=== PATIENT | female | born 1990 | race Caucasian/White ===

== ENCOUNTER 2022-04-28 06:00 | Outpatient (RCR) | payer BC, SELFPAY | END 2022-05-13 23:59 | disposition home or self-care (01) | LOC: SPT 06:00 | PROVIDERS: PCP Registered Nurse; Visit Provider Registered Nurse | DX: S46.912A Strain of unspecified muscle, fascia and tendon at shoulder and upper arm level, left arm, initial encounter (principal); X58.XXXA Exposure to other specified factors, initial encounter | CPT/HCPCS: 97161 ==

== ENCOUNTER → 2023-02-12 10:00 | Outpatient (BNVA) | payer MEDICAID, SELFPAY | PROVIDERS: PCP Nurse Practitioner Family; Visit Provider Obstetrics & Gynecology | DX: Z39.2 Encounter for routine postpartum follow-up (principal) | CPT/HCPCS: 80053; 82570; 84156; 84550; 85025 ==

== ENCOUNTER 2023-02-16 11:31 | Outpatient (CLI) | payer MEDICAID, SELFPAY ==
[2023-02-16 12:27] LABS: Total Volume, Urine 2400 mL
[2023-02-16 12:49] LABS: Urine Total Protein 4.1 mg/dL (0-150); Urine Total Protein 24 Hour 98.4 mg/24hr (0-150)
== END 2023-02-16 11:32 | disposition home or self-care (01) ==
PROVIDERS: PCP Nurse Practitioner Family; Visit Provider Obstetrics & Gynecology
DX: Z01.89 Encounter for other specified special examinations (principal)
CPT/HCPCS: 36415; 84156

== ENCOUNTER → 2023-05-12 11:44 | Outpatient (BNVA) | payer MEDICAID, SELFPAY | PROVIDERS: PCP Nurse Practitioner Family; Visit Provider Obstetrics & Gynecology | DX: R10.2 Pelvic and perineal pain (principal) | CPT/HCPCS: 76830 ==

== ENCOUNTER → 2023-09-03 08:12 | Outpatient (BNVA) | payer MEDICAID, SELFPAY | PROVIDERS: PCP Nurse Practitioner Family; Visit Provider Obstetrics & Gynecology | DX: Z30.9 Encounter for contraceptive management, unspecified (principal) | CPT/HCPCS: 81025 ==

== ENCOUNTER → 2023-09-07 13:48 | Outpatient (BNVA) | payer MEDICAID, SELFPAY | PROVIDERS: PCP Nurse Practitioner Family; Visit Provider Obstetrics & Gynecology | DX: N83.291 Other ovarian cyst, right side (principal) | CPT/HCPCS: 76830 ==

== ENCOUNTER 2023-09-30 13:17 | Outpatient (CLI) | payer MEDICAID, SELFPAY ==
--- NOTE | 2023-09-30 13:25 | MM_ITS ---
WS: [id number] BILATERAL 3D TOMOSYNTHESIS DIGITAL DIAGNOSTIC MAMMOGRAPHY WITH CAD CLINICAL INFORMATION: PRAFUL BR PAIN HISTORY: Diagnostic mammogram. LEFT breast lump. Bilateral breast pain. COMPARISON: Baseline TECHNIQUE: Bilateral CC, ML, and MLO views. FINDINGS: The breasts are composed of heterogeneous fibroglandular density tissue, which can limit the detectio n of small underlying mass lesions. Palpable marker upper outer LEFT breast. Normal underlying parenc hymal tissue. Ultrasound of this area is pending. ULTRASOUND BREAST BILATERAL TECHNIQUE: Ultrasound bilateral breast focused area of concern. CLINICAL INFORMATION: PRAFUL BR PAIN FINDINGS: RIGHT BREAST: Ultrasound RIGHT breast area of concern 7 to 10 o'clock position. Normal underlying par enchymal tissue. No cystic or solid lesions. No suspicious findings in the area of concern. LEFT BREAST: Ultrasound LEFT breast area of palpable lump 2 o'clock position 5 cm from the nipple. Pa renchymal tissue. No cystic or solid lesions. No suspicious findings in the area of concern. IMPRESSION: MM/[place] [id number] BI-RADS: 2-Benign FOLLOW UP: Age 39 Recommend annual screening mammography age 39
== END 2023-09-30 13:18 | disposition home or self-care (01) ==
LOC: RAD 13:18
PROVIDERS: PCP Nurse Practitioner Family; Visit Provider Nurse Practitioner Family
DX: N64.4 Mastodynia (principal); N63.21 Unspecified lump in the left breast, upper outer quadrant; R92.322 Mammographic fibroglandular density, left breast
CPT/HCPCS: 76641; 77062; G0279

== ENCOUNTER 2024-04-25 10:43 | Observation (INO) | payer OTHER, MEDICAID, SELFPAY ==
--- NOTE | 2024-04-24 12:10 | ANES.PREANE2 ---
Pre-Anesthetic Assessment Height/Weight: Height 5 ft 5 in Preop Diagnosis: Chronic pelvic pain, dyspareunia, dysmenorrhea, endometriosis Operation Date: 04/25/24 08:35 Proposed Procedures p Laparoscopic Assist Vaginal Hysterectomy 40040, R10.2, G89.29(Not Applicable) - Lázaro Mercer MD Social Tobacco and No alcohol Exam alert, oriented x 3 and clear to auscultation bilaterally Patient appears to drop a beat on auscultation, will plan on getting EKG prior to surgery Airway Submandibular: within normal limits Cervical ROM: within normal limits Anesthetic Plan ASA status: 3 Anesthesia: General Other: No prior issues with anesthesia, patient is a difficult stick NPO since yesterday History of GERD on Protonix Will obtain labs prior to surgery EKG ordered Plan for GETA Medications/Allergies Home Medications Medication Instructions Recorded Confirmed Last Taken Type hyoscyamine sulfate 0.125 mg tablet 0.125 mg PO QID 09/03/23 04/24/24 04/23/24 History pantoprazole 20 mg tablet,delayed 20 mg PO DAILY 09/03/23 04/24/24 04/23/24 History release (Protonix) tizanidine 4 mg capsule 4 mg PO BID PRN Abdominal 12/24/23 04/24/24 Unknown History Discomfort ibuprofen 100 mg chewable tablet 200 mg PO Q6H PRN Pain 04/24/24 04/24/24 04/23/24 History Allergies Allergy/AdvReac Type Severity Reaction Status Date / Time cefaclor Allergy Unknown ALGY-Hives Verified 04/24/24 09:12 amoxicillin Allergy Unknown Verified 04/24/24 09:12 omeprazole Allergy ADR-Nausea Verified 04/24/24 11:05 PFSH Anesthesia Family History Father CAD (coronary artery disease) Hyperlipidemia Hypertension Heart disease Grandfather Cancer Grandmother Diabetes Father Diabetes Stroke Hypertension Heart disease Denies family history of Colon cancer Ovarian cancer Prostate cancer Dementia Chronic kidney disease (CKD) Breast cancer Uterine cancer Thyroid disease Social History Smoking and tobacco/nicotine status: current every day tobacco/nicotine user Alcohol intake: never Substance/Drug Use: never Adopted: No Caregiver/support person: No Lives independently: No Household members: significant other service: No Current occupational status: employed Sexually active: Yes Do you think of yourself as: Straight/Heterosexual Current gender identity: Female Data Anesthesia Cardiac Studies: No Data to Display
[2024-04-25] VITALS (20 sets, daily range): BP systolic 103–142; BP diastolic 2–84; PULSE 60–97; RESP 12–19; TEMP 36.3–36.9; O2SAT 93–100; BMI 40.7
[2024-04-25 07:38] LABS: Bilirubin Urine Negative (Negative); Blood Urine Negative (Negative); Glucose Urine UA Negative (Normal); Ketones Urine Negative (Negative); Leukocyte Esterase Urine Negative (Negative); Nitrate Urine Negative (Negative); Protein Urine Negative (Negative); Specific Gravity, Urine 1.015 (1.005-1.030); Urine Appearance Clear (CLEAR); Urine Color Yellow (Yellow); Urobilinogen Urine 0.2 mg/dL (Negative); pH Urine 7.5 (5-7)
[2024-04-25 07:43] LABS: Add Urine Microscopic? YES; Bacteria Urine 4+ /hpf; RBC Urine 0-2 /hpf (0-2); Squamous Epithelial Cell Urine 0-5 /hpf (0-5); WBC Urine 0-5 /hpf (0-5)
--- NOTE | 2024-04-25 07:44 | ECG_ITS ---
[facility] Test Date: 2024-04-25 Pat Name: Cynthia Garibay Department: Room: Gender: Female Buyer Planner: : 1990 Requested By: Ross Gutierrez Order Number: [id number] Reading MD: Measurements Intervals [place] Rate: 78 P: 32 UT: 110 QRS: 56 QRSD: 114 T: 26 QT: 363 QTc: 414 Interpretive Statements SINUS RHYTHM WITH SINUS ARRHYTHMIA WITH SHORT UT INTERVAL LOW QRS VOLTAGE IN PRECORDIAL LEADS [QRS DEFLECTION < 1.0 mV IN CHEST LEADS] MODERATE INTRAVENTRICULAR CONDUCTION DELAY [110+ ms QRS DURATION] [id number]
[2024-04-25] MEDS: scopolamine 1.5 Patch 1 PATCH TRANSDERMA (07:48)
[2024-04-25] MEDS: sodium chloride 0.9% 500 ML IV (07:48)
[2024-04-25] MEDS: metroNIDAZOLE IV 500 MG/100 ML PREMIX 100 MG IV (07:49)
[2024-04-25] MEDS: sodium chloride 0.9% 1,000 ML 30 ML IV (07:49)
[2024-04-25 07:55] LABS: Basophils # 0.1 10^3/uL (0.0-0.1); Basophils % 0.6 %; Eosinophils # 0.3 10^3/uL (0.0-0.8); Eosinophils % 3.2 %; Hematocrit 37.9 % (36-47); Lymphocytes # 1.9 10^3/uL (0.8-4.8); Lymphocytes % 20.1 %; Mean Corpuscular HGB Conc 31.9 g/dL (30-55); Mean Corpuscular Hemoglobin 25.2 pg (27-33); Mean Corpuscular Volume 78.8 fl (85-98); Mean Platelet Volume 9.8 fL (7.4-10.4); Monocytes # 0.5 10^3/uL (0.2-0.9); Monocytes % 5.5 %; Neutrophils # 6.71 10^3/uL (1.8-7.7); Neutrophils % 70.3 %; Nucleated Red Blood Cells % 0 %; Platelet Count 336 10^3/cmm (157-399); Red Blood Count 4.81 10^6/uL (3.85-5.65); Red Cell Distribution Width 14.6 % (12.1-15.1); White Blood Count 9.56 10^3/uL (3.29-11.43)
[2024-04-25 07:59] LABS: OR HCG Qualitative Urine Negative (Negative)
--- NOTE | 2024-04-25 08:00 | W.PM.OPSUD ---
Surgery/Procedure H&P Update DATE OF PROCEDURE: April 25, 2024 DATE H&P PERFORMED: 04/24/24 H&P UPDATE INFORMATION: I have reviewed H&P completed within last 30 days, I have examined patient prior to procedure and No changes to prior documentation PREOP DIAGNOSIS: Chronic pelvic pain, dyspareunia, dysmenorrhea, endometriosis PLANNED PROCEDURE: Operation Date: 04/25/24 08:35 Proposed Procedures p Laparoscopic Assist Vaginal Hysterectomy 69739, R10.2, G89.29(Not Applicable) - Lázaro Mercer MD
--- NOTE | 2024-04-25 08:00 | ANES.PAUD2 ---
Pre-Anesthetic Update Pre-Anesthetic Assessment: Date of Surgery/Procedure: 04/25/24 Preop Diagnosis: Chronic pelvic pain, dyspareunia, dysmenorrhea, endometriosis Proposed Procedure: Operation Date: 04/25/24 08:35 Proposed Procedures p Laparoscopic Assist Vaginal Hysterectomy 90534, R10.2, G89.29(Not Applicable) - Lázaro Mercer MD Changes from Pre-Anesthetic Assessment: No changes since yesterday. EKG performed this a.m. showing sinus rhythm with a short OR interval leading to a conduction delay. Labs reviewed and acceptable for procedure Plan for GETA Last Intake: Intake Last Liquid Date 04/24/24 Last Liquid Time 21:30 Last Solid Date 04/24/24 Last Solid Time 21:00 Labs Last 48hrs: Short CBC 04/25/24 Range/Units 07:42 WBC 9.56 (3.29-11.43) 10^ 3/uL Hgb 12.10 (11.27-16.99) g/ dL Hct 37.9 (36-47) % MCV 78.8 L (85-98) fl Plt Count 336 (157-399) 10^3/c mm Neut % (Auto) 70.3 % Neut # (Auto) 6.71 (1.8-7.7) 10^3/u L Urine 04/24/24 Range/Units 11:37 Urine Color Yellow (Yellow) Urine Appearance Clear (CLEAR) Urine pH 7.5 (5-7) Ur Specific Gravit y 1.015 (1.005-1.030) Urine Protein Negative (Negative) Urine Glucose (UA) Negative (Normal) Urine Ketones Negative (Negative) Urine Nitrate Negative (Negative) Urine Bilirubin Negative (Negative) Ur Leukocyte Karen ase Negative (Negative) Urine RBC 0-2 (0-2) /hpf Urine WBC 0-5 (0-5) /hpf Vitals: Temperature 97.8 F 04/25/24 07:26 Temperature Source Temporal Artery S can 04/25/24 07:26 Pulse Rate 97 04/25/24 07:26 Respiratory Rate 17 04/25/24 07:26 Blood Pressure 126/84 04/25/24 07:26 Blood Pressure Eileen n 98 04/25/24 07:26 Pulse Oximetry 96 04/25/24 07:26 Oxygen Delivery Me thod Room Air 04/25/24 07:36 Cardiac Studies: No Data to Display
[2024-04-25 08:12] LABS: Alanine Aminotransferase 30 U/L (0-33); Albumin Level 4.3 g/dL (3.5-5.2); Alkaline Phosphatase 126 U/L (35-105); Anion Gap 15.2 (5-19); Aspartate Amino Transferase 20 U/L (0-32); Blood Urea Nitrogen 7 mg/dL (6-20); Calcium 8.8 mg/dL (8.5-10.5); Carbon Dioxide 22 mmol/L (22-29); Chloride 104 mmol/L (98-107); Creatinine Clr Calc Pharmacy 164.0404; Glomerular Filtration Rate 114.4 mL/min (90-130); Glucose 118 mg/dL (65-115); Osmolality Calculated 283 mOsm/kg (285-295); Potassium 4.2 mmol/L (3.5-5.1); Sodium 137 mmol/L (136-145); Total Bilirubin 0.2 mg/dL (0.15-1.2); Total Protein 7.3 g/dL (6.6-8.7)
[2024-04-25] MEDS: levofloxacin-dextrose 5 % 500 MG/100 ML PREMIX 100 MG IV (08:56)
[2024-04-25] MEDS: BUPivacaine 0.5% INJ 10 mL INJECTION (09:46)
[2024-04-25] MEDS: lidocaine-epi 2% PF 1:200,000 20 mL SDV 10 ML INJECTION (09:46)
--- NOTE | 2024-04-25 10:06 | W.PM.BPON ---
Date of Procedure: 04/25/24 Surgeon: Lázaro Mercer MD Automatic Profile Sander Operator(s): Procedure(s) performed: Laparoscopic assisted vaginal hysterectomy Findings of the procedure(s): Normal size uterus, normal right ovary with follicular cyst Estimated blood loss: 50 mL Specimen(s) removed: Uterus Post-operative diagnosis: Status post LAVH
--- NOTE | 2024-04-25 10:07 | P.OP_ITS ---
Operative Report Date of procedure: April 25, 2024 Pre-op diagnosis: Pelvic pain Dyspareunia Dysmenorrhea Endometrial Post-op diagnosis: same Procedure done: Laparoscopic assisted total vaginal hysterectomy Specimens removed/disposition: Uterus Surgeon: Lázaro Mercer MD Estimated blood loss (mL): 50 IV fluids (mL): 550 Urine output (mL): 150 Complications: None Procedure: After discussing informed consent again, the patient was taken to the operating room where general anesthesia was administered. She was placed in the dorsal lithotomy position in low stirrups and prepped and draped in sterile fashion. Pre-Procedure Time-Out verifying the correct patient identity, correct procedure verified with consent, correct site and side, correct patient position, availability of correct implants and any special equipment or requirements was performed and acknowledge by the OR team. After the initial preparation, the procedure commenced at the vagina. With a Bookwalter vaginal retractor was place to visualize the cervix; the anterior and posterior lips of the cervix were separately grasped and clamped with oziel tooth tenaculum. The cervix was then dilated to a #6 hegar dilator and a uterine manipulator within the uterine cavity for manipulation purposes being careful not to puncture the uterus. A Serna catheter was placed in the bladder. Attention was then turned to the abdomen. The umbilical region was infiltrated with 2% lidocaine with epinephrine. An intraumbilical incision was made and the Verres needle was gently advanced taking care to feel for the typical sensation of penetrating the peritoneum. With CO2 infiltration, an opening pressure of 5 mmHg was noted, and following this, a pneumoperitoneum of 15 mmHg was created. A 5 mm Optiview trocar was then passed through the same incision under direct visualization. Trocar was removed and the laparoscope was then inserted through the trocar sleeve. Visualization o f the peritoneal cavity was then obtained and a brief inspection did not reveal any signs of complications from entry. Under direct observation, a second incision was made 3 cm above the symphysis pubis, and a 5 mm trocar and sleeve were admitted into the abdomen under direct, laparoscopic visualization. Once the placement of the ports was complete, the actual laparoscopic procedure began. Beginning on the right side and distally along the length of the fallopian tube, the mesosalpinx was exposed by lifting the tube/ovary up towards the anterior abdominal wall. The mesosalpinx was then sequentially, clamped, ligated, and cut using the LigaSure working alongside the length of the tube and towards the cornua. The same process was repeated on the left, sequentially clamping, sealing/ligating, and cutting the mesosalpinx being sure to not injure the adjacent ovarian tissue or other surrounding structures. The round ligament was then clamped, sealed/ligated and cut with the LigaSure device. Following this, the anterior leaf of the broad ligament was then taken down on the left side, dissecting down towards the peritoneal reflection at the base of the bladder and adjacent to the cervix. The same process was then repeated on the left side such that both sides met and the anterior leaflet had been appropriately skeletonized. To ensure excellent hemostasis prior to further manipulation, the pedicles of the cardinal ligament was then clamped sealed/ligated and divided on each side using the LigaSure device. Attention was then turned to the vaginal aspect of the surgery. The Serna cat heter was clamped. A Bookwalter vaginal retractor was placed in the vagina and the uterine manipulator was removed. The tenaculum was repositioned anteriorly and posteriorly. A circumferential incision was made at the cervical vaginal reflection using cautery. This was undermined first anteriorly and a colpotomy made without difficulty. This was then repeated posteriorly and a similar colpotomy made. Irene retractors were then placed into each of these incisions. Beginning first on the patient's left, the uterosacral and cardinal ligament was clamped, sealed, divided, and suture ligated. Two bites were required to reach the previous dissection margin of the left side. The same process was then repeated on the patient's right hand side, at which point, the specimen was completely freed. Once the sutures had been placed and the pedicles secured, the uterus was removed transvaginally without difficulty. All pedicles were inspected and hemostasis was confirmed. The vaginal vault was then oversewn with a running locking Vicryl suture, securing first the posterior edge of the cuff followed by the anterior edge. Good hemostasis was obtained. Two [id number] sutures were then placed across the vaginal vault to close it. Once these had been tied off, all sutures were trimmed; a wet sponge was placed in the vagina to pack it off while attention was again turned back to the abdomen. All instruments were removed from the vagina at this time. The abdomen was carefully inspected to ensure complete hemostasis. Once the entire abdomen was inspected, the ports were then removed under direct visualization being sure to note hemostasis of the port sites on removal. The incisions were then closed with interrupted Monocryl sutures and Dermabond. The patient tolerated the procedure well, anesthesia reversed, and the patient was taken to the recovery room in stable condition. All sponges, instruments, and sharps were counted and correct x 3.
--- NOTE | 2024-04-25 10:49 | PC.NURSE ---
NSR at present. EKG completed due to SA in procedure
--- NOTE | 2024-04-25 10:51 | ECG_ITS ---
[facility] Test Date: 2024-04-25 Pat Name: Cynthia Garibay Department: Room: OB12 Gender: Female Gynecological Assistant: : 1990 Requested By: Ross Gutierrez Order Number: [id number] Lynn MD: Maegan Payan M.D. Measurements Intervals [place] Rate: 69 P: 41 WA: 124 QRS: 70 QRSD: 116 T: 41 QT: 379 QTc: 407 Interpretive Statements SINUS RHYTHM MODERATE INTRAVENTRICULAR CONDUCTION DELAY [110+ ms QRS DURATION] some nonspecific T wave changes Compared to ECG 04/25/2024 07:44:42 Sinus arrhythmia no longer present Short WA interval no longer present Electronically Signed On 04-29-2024 15:58:40 DRUM CARRIER by Maegan Payan M.D. [id number]
--- NOTE | 2024-04-25 10:55 | ANE.PACU2 ---
Inpatient post-anesthesia follow up: Airway intact: Yes Vital signs: Temperature 98.2 F Pulse Rate 77 Respiratory Rate 16 Blood Pressure 122/62 Pulse Oximetry 98 Oxygen Delivery Me thod Room Air Oxygen Flow Rate Fraction of Inspir ed Oxygen Hydration adequate: Yes Nausea and vomiting: No Pain level: 1 Mental status: Baseline
--- NOTE | 2024-04-25 11:17 | PC.NURSE ---
Report was given to ob nurse prior to transfer
[2024-04-25] MEDS: HYDROcodone-acetaminophen 5-325 mg Tablet PO (11:34)
[2024-04-25] MEDS: dextrose 5%-lactated ringers 1,000 ML 125 ML IV (11:37)
[2024-04-25] MEDS: hyoscyamine ODT 0.125 mg Tablet PO ×3 (12:56→21:27)
[2024-04-25] MEDS: HYDROmorphone 1 mg/mL INJ 1 mL 0.5 MG IVP ×3 (12:57→21:27)
[2024-04-25] MEDS: flu vacc pf 24-25 (6 mos+) SYRINGE 45 MCG IM (15:13)
[2024-04-25] MEDS: ondansetron 2 mg/ML SDV 2 mL 4 MG IVP (17:12)
--- NOTE | 2024-04-25 17:40 | PC.NURSE ---
1630: Patient ambulating in dawson with RN. Patient walked two laps around OB unit and tolerated ambulation very well.
[2024-04-25] MEDS: docusate sodium 100 mg Capsule PO (21:27)
--- NOTE | 2024-04-26 01:08 | PC.NURSE ---
Around 2329 Pt began reporting that her perineum felt like it was on fire. RN assessed packing and folley and both appeared intact and appropriate. RN made an ice pack for patient to place on perineum. Pt stated it was not helping. RN notified physician of patient complaint and received orders to remove vaginal packing. Vaginal packing removed around 9. Pt still complaining of burning. RN provided Tucks pads and encouraged patient to find a more comfortable position. Patient stated she felt like she would be able to sleep.
[2024-04-26] MEDS: pantoprazole DR 40 mg Tablet PO (03:30)
[2024-04-26] MEDS: HYDROcodone-acetaminophen 5-325 mg Tablet PO ×2 (03:32→09:25)
[2024-04-26] MEDS: ketorolac 30 mg/mL INJ IVP (03:33)
[2024-04-26 05:00] VITALS: BP 113/51; PULSE 50; RESP 18; TEMP 36.4; O2SAT 97
[2024-04-26 05:28] VITALS: RESP 18
[2024-04-26] MEDS: HYDROmorphone 1 mg/mL INJ 1 mL 0.5 MG IVP (05:28)
[2024-04-26 05:40] LABS: Hematocrit 33.1 % (36-47); Mean Corpuscular HGB Conc 31.7 g/dL (30-55); Mean Corpuscular Hemoglobin 25.2 pg (27-33); Mean Corpuscular Volume 79.4 fl (85-98); Mean Platelet Volume 10.1 fL (7.4-10.4); Platelet Count 319 10^3/cmm (157-399); Red Blood Count 4.17 10^6/uL (3.85-5.65); Red Cell Distribution Width 14.6 % (12.1-15.1); White Blood Count 14.92 10^3/uL (3.29-11.43)
[2024-04-26] MEDS: hyoscyamine ODT 0.125 mg Tablet PO (09:24)
[2024-04-26] MEDS: ibuprofen 800 mg tablet PO (09:25)
[2024-04-26] MEDS: docusate sodium 100 mg Capsule PO (09:25)
[2024-04-26 09:40] VITALS: BP 112/71; PULSE 64; TEMP 36.7
--- NOTE | 2024-04-26 09:49 | P.DS_ITS ---
Discharge Providers RAIL FLAW DETECTOR OPERATOR Date of Admission: 04/25/24 10:43 Date of Discharge: 04/26/24 Attending Provider at Admission: Lázaro Mercer MD Attending Provider at Discharge: Lázaro Mercer MD Primary RAIL FLAW DETECTOR OPERATOR: Lázaro Mercer MD Primary Care Provider: Divina Franco Reason for Visit Reason for Visit: R10.2 Hospital Course Hospital Course Mrs. Garibay 33-year-old female with a history of chronic pelvic pain, dyspareunia, endometrial and abnormal bleeding unresponsive to medical management. Admitted for planned laparoscopic assisted vaginal hysterectomy. The procedure was performed without complication. Overnight observation was uneventful. Ambulating without difficulty. Tolerating diet well. She is afebrile hemodynamically stable postoperative day 1. She was counseled regarding pelvic rest for 6 weeks (no sex, no tampons, no vaginal douches). Return to the emergency room if any fever, increased bleeding or pain. Physical Exam Narrative: GA: Alert and oriented ?3. HEENT: WNL. Heart: Regular rate and rhythm. Lungs: Clear to auscultation bilaterally. Abdomen: Bowel sounds present, nontender, minimal tenderness, incision clean and dry, no redness, pain or edema. GRAVE CLEANER: spotting bleeding. Extremities: No edema, no cyanosis, no calves pain. Urinary Catheter Management: Serna: Cath Placed During This Visit: yes, but has since been removed by the nurse Reason for Continuing Indwelling Catheter: Decision to DC Catheter Urinary Catheter Date of Insertion: 04/25/24 Urinary Catheter Time of Insertion: 08:56 Date Urinary Catheter Removed: 04/26/24 Time Urinary Catheter Discontinued: 05:30 History History History 2 Term 2 0 Miscarriages/Ectopic 0 Living Children 2 Discharge Data Studies Completed and Pending Pending at discharge Category Date Time Status Pathology: Surgical [PTH] Routine Pth 04/25/24 09:56 Received Laboratory Results WBC 14.92 10^3/uL (3.29-11.43) H 04/26/24 05:35 RBC 4.17 10^6/uL (3.85-5.65) 04/26/24 05:35 Hgb 10.50 g/dL (11.27-16.99) L 04/26/24 05:35 Hct 33.1 % (36-47) L 04/26/24 05:35 MCV 79.4 fl (85-98) L 04/26/24 05:35 MCH 25.2 pg (27-33) L 04/26/24 05:35 MCHC 31.7 g/dL (30-55) 04/26/24 05:35 RDW 14.6 % (12.1-15.1) 04/26/24 05:35 Plt Count 319 10^3/cmm (157-399) 04/26/24 05:35 MPV 10.1 fL (7.4-10.4) 04/26/24 05:35 Neut % (Auto) 70.3 % 04/25/24 07:42 Lymph % (Auto) 20.1 % 04/25/24 07:42 Slope % (Auto) 5.5 % 04/25/24 07:42 Eos % (Auto) 3.2 % 04/25/24 07:42 Baso % (Auto) 0.6 % 04/25/24 07:42 Neut # (Auto) 6.71 10^3/uL (1.8-7.7) 04/25/24 07:42 Lymph # (Auto) 1.9 10^3/uL (0.8-4.8) 04/25/24 07:42 Slope # (Auto) 0.5 10^3/uL (0.2-0.9) 04/25/24 07:42 Eos # (Auto) 0.3 10^3/uL (0.0-0.8) 04/25/24 07:42 Baso # (Auto) 0.1 10^3/uL (0.0-0.1) 04/25/24 07:42 Nucleated RBC % (auto) 0 % 04/25/24 07:42 Nucleated RBCs # 0.0 /100WBC 04/25/24 07:42 Sodium 137 mmol/L (136-145) 04/25/24 07:42 Potassium 4.2 mmol/L (3.5-5.1) 04/25/24 07:42 Chloride 104 mmol/L (98-107) 04/25/24 07:42 Carbon Dioxide 22 mmol/L (22-29) 04/25/24 07:42 Anion Gap 15.2 (5-19) 04/25/24 07:42 BUN 7 mg/dL (6-20) 04/25/24 07:42 Creatinine 0.6 mg/dL (0.5-0.9) 04/25/24 07:42 GFR Calculation 114.4 mL/min (90-130) 04/25/24 07:42 Glucose 118 mg/dL (65-115) H 04/25/24 07:42 Calculated Osmolality 283 mOsm/kg (285-295) L 04/25/24 07:42 Calcium 8.8 mg/dL (8.5-10.5) 04/25/24 07:42 Total Bilirubin 0.2 mg/dL (0.15-1.2) 04/25/24 07:42 AST 20 U/L (0-32) 04/25/24 07:42 ALT 30 U/L (0-33) 04/25/24 07:42 Alkaline Phosphatase 126 U/L (35-105) H 04/25/24 07:42 Total Protein 7.3 g/dL (6.6-8.7) 04/25/24 07:42 Albumin 4.3 g/dL (3.5-5.2) 04/25/24 07:42 Globulin 3.0 g/dL (1.3-4.6) 04/25/24 07:42 Urine Color Yellow (Yellow) 04/24/24 11:37 Urine Appearance Clear (CLEAR) 04/24/24 11:37 Urine pH 7.5 (5-7) 04/24/24 11:37 Ur Specific [place] 1.015 (1.005-1.030) 04/24/24 11:37 Urine Protein Negative (Negative) 04/24/24 11:37 Urine Glucose (UA) Negative (Normal) 04/24/24 11:37 Urine Ketones Negative (Negative) 04/24/24 11:37 Urine Blood Negative (Negative) 04/24/24 11:37 Urine Nitrate Negative (Negative) 04/24/24 11:37 Urine Bilirubin Negative (Negative) 04/24/24 11:37 Urine Urobilinogen 0.2 mg/dL (Negative) 04/24/24 11:37 Ur Leukocyte Esterase Negative (Negative) 04/24/24 11:37 Urine RBC 0-2 /hpf (0-2) 04/24/24 11:37 Urine WBC 0-5 /hpf (0-5) 04/24/24 11:37 Ur Squamous Epith Cells 0-5 /hpf (0-5) 04/24/24 11:37 Amorphous Sediment Not Reportable 04/24/24 11:37 Urine Bacteria 4+ /hpf (NONE) H 04/24/24 11:37 Hyaline Casts 0.40 /lpf 04/24/24 11:37 Urine HCG, Qual Negative (Negative) 04/25/24 07:50 Blood Type O Positive 04/25/24 07:42 Rho(D) Type Rh positive 04/25/24 07:42 Antibody Screen Negative 04/25/24 07:42 Vitals Last Vital Signs Temp 97.6 F 04/26/24 05:00 Pulse 50 L 04/26/24 05:00 Resp 18 04/26/24 05:28 BP 113/51 04/26/24 05:00 Pulse Ox 97 04/26/24 05:00 O2 Del Method Room Air 04/26/24 05:00 Results Labs OB ([facility]): Blood Type O Positive 04/25/24 Antibody Screen Negative 04/25/24 Hct 33.1 % (36-47) L 04/26/24 Hgb 10.50 g/dL (11.27-16.99) L 04/26/24 Rho(D) Type Rh positive 04/25/24 Plt Count 319 10^3/cmm (157-399) 04/26/24 Uric Acid 5.2 mg/dL (2.4-5.7) 02/12/23 HCG, Qual Negative (Negative) 09/03/23 Discharge Plan Discharge Patient Disposition: Home Condition: Good Prescriptions: New hydrocodone-acetaminophen 5-325 mg tablet 1 tab PO Q4H PRN (Reason: pain) Qty: 20 0RF acetaminophen 325 mg capsule 325 mg PO Q4H PRN (Reason: fever or postoperative pain) Qty: 60 0RF ferrous sulfate [Iron (ferrous sulfate)] 325 mg (65 mg iron) tablet 325 mg PO BID Qty: 30 0RF ibuprofen 800 mg tablet 800 mg PO TID PRN (Reason: pain) Qty: 60 0RF docusate sodium [Colace] 100 mg capsule 100 mg PO BID Qty: 30 0RF Continued pantoprazole [Protonix] 20 mg tablet,delayed release (DR/EC) 20 mg PO DAILY hyoscyamine sulfate 0.125 mg tablet 0.125 mg PO QID tizanidine 4 mg capsule 4 mg PO BID PRN (Reason: Abdominal Discomfort) ibuprofen 800 mg Tablet 800 mg PO Q6H Discharge Orders: Discharge Order (Routine); Ordered 04/26/24 Ordered By: Lázaro Mercer Referrals: Lázaro Mercer MD [Physician] - 2 weeks Discharge Diet: Usual diet Discharge Activity: Limit activity as instructed Patient Instructions: Laparoscopy, Acute Wound Care (DC), Hysterectomy (GEN), Laparoscopic Hysterectomy (GEN), Opioid Safety, Post Anesthesia Care Activity Restrictions/Additional Instructions: 1. Please call [facility] on next working day to make your post-operative appointment in 2 weeks. 2. Please stay home until you come back to the clinic on first post-hospatil ization check up. 3. Please follow instructions on your medications CAREFULLY. 4. If you have abdominal incision, do not cover it unless dressing is necessary because of drainage. OK to shower, but avoid bath. Leave steri-strips until they fall off. If they are still on one week after surgery, you may remove them. 5. If you had vaginal surgery or vaginal repair, Dr. Mercer may instruct you to take SITZ bath. 6. Yellow, blood tinged odorous vaginal discharge is usually normal after hysterectomy or vaginal surgeries. 7. No SEXUAL INTERCOURSE, tampons, or douches until you are completely released from the post-operative care. 8. Avoid constipation by eating right and maybe using some Metamucil or Milk of Magnesia. 9. All prescription refills are given during the working hours. Please do no wait till it runs out. Call the clinic at [phone] before your medication runs out. The clinic will get in touch with your doctor to prescribe medications if necessary. 10. Please remain within 40 mile radius from our hospital because emergencies do happen now and then during the post-operative period. 11. If you have stairs at home, take one step at a time slowly and minimize the number of trips. It helps to stay in one floor for the next few days. No lifting except what you can lift by one hand until you are released from the post-operative care. 12. Driving is discouraged until you are well healed. It may be 3-4 weeks before you feel strong enough to drive. You should be able to turn and look through the rear window without pain and you should be able to push the brake pedal very hard without pain before you drive. No fast rules, but SAFETY should be your primary concern. DO NOT drive if you are on sedating medications such as narcotics. 13. Call the clinic (during working hours) to make urgent appointment or go to the Emergency room, if any of the following occurs: i. Vaginal bleeding becomes heavy, more than a period. ii. Incision becomes red and sore, or drains pus. iii. Your TEMPERATURE is over 100.4F or you have chill. iv. IV site becomes red and swollen (a little ``knot?? is usually OK) v. Persistent nausea and vomiting vi. Persistent constipation or diarrhea vii. Rash or allergic reaction to medications. Discharge Attestations RAIL FLAW DETECTOR OPERATOR Time Spent in Discharge Care*: greater than 30 min Coding Level of Care Code Acute Code for Chg Adam
[2024-04-26 10:59] VITALS: BP 112/71; PULSE 64; TEMP 36.7; O2SAT 98
== END 2024-04-26 10:24 | disposition home or self-care (01) ==
LOC: OBGYN 10:44
PROVIDERS: Admitting Provider Obstetrics & Gynecology; PCP Nurse Practitioner Family; Visit Provider Obstetrics & Gynecology
PROC: 0UT9FZZ Resection of Uterus, Via Natural or Artificial Opening With Percutaneous Endoscopic Assistance (ICD-10-PCS; CPT 58550; principal; 2024-04-25 08:15)
DX: N94.6 Dysmenorrhea, unspecified (principal); N72 Inflammatory disease of cervix uteri; K21.9 Gastro-esophageal reflux disease without esophagitis; F17.200 Nicotine dependence, unspecified, uncomplicated; G89.29 Other chronic pain
CPT/HCPCS: 58550; 36415; 80053; 81001; 81025; 85025; 85027; 86850; 86900; 88307; 90471; 90686; 93005; 96374; G0378; J0131; J1100; J1171; J1885; J1956; J2405; J2704; J3490; J7030; J7040; J7121

== ENCOUNTER → 2024-07-07 14:16 | Outpatient (BNVA) | payer OTHER, MEDICAID, SELFPAY | PROVIDERS: PCP Nurse Practitioner Family; Visit Provider Obstetrics & Gynecology | DX: R23.2 Flushing (principal) | CPT/HCPCS: 83001 ==